=== PATIENT | female | born 1980 | race Caucasian/White ===

== ENCOUNTER 2025-04-04 16:47 | Emergency (ER) | payer BC, SELFPAY ==
[2025-04-04 17:18] VITALS: BP 145/92; PULSE 76; TEMP 37; O2SAT 100; BMI 29.5
[2025-04-04 18:12] LABS: Glucose Urine UA NEGATIVE (NEGATIVE)
[2025-04-04 18:15] LABS: HCG Qualitative Urine* NEGATIVE (NEGATIVE)
[2025-04-04 18:24] LABS: Cast Seen? NONE SEEN #/LPF (NONE SEEN); Crystals Seen? None Seen #/HPF (None Seen); Urine Culture Indicated NO
--- NOTE | 2025-04-04 19:01 | ED_ITS ---
HPI - Female Genitourinary General Chief complaint: Vaginal Bleeding Stated complaint: Vaginal Bleeding Time Seen by Provider: 04/04/25 17:13 Source: patient Mode of arrival: walk-in History of Present Illness HPI Narrative: Patient presents to the ED with vaginal bleeding. She reports that her menstrual cycle has lasted approximately 2 weeks. The flow had slowed down for a few days but she recently noticed spotting that has now increased to the point of requiring pads again. She describes mild cramping similar to her usual menstrual cramps. She denies heavy bleeding (not saturating pads rapidly), severe abdominal pain, dysuria, fever, or other systemic symptoms. She was recently tested for STDs due to resuming sexual activity with her ex-, and results were negative. No history of thyroid disease or hormone use. Related Data Home Medications ?Medication ?Instructions ?Recorded ?Confirmed No Known Home Medications 04/04/2503/15 Allergies Allergy/AdvReac Type Severity Reaction Status Date / Time No Known Drug Allergies Allergy Verified 04/04/25 17:18 PFSH PFSH Social History Little interest or pleasure in doing things: not at all Feeling down, depressed, or hopeless: not at all Exam Narrative Exam Narrative: * General: Alert, oriented, in no acute distress * Vital Signs: BP 145/92, afebrile, not tachycardic * Abdomen: Soft, nontender, no guarding or rebound * Pelvic Exam: * Vaginal bleeding noted * Cervical os closed * No external lesions or masses * No signs of infection (no purulent discharge, no cervical motion tenderness) Constitutional Vital Signs, click to edit/add: Last Vital Signs Temp 98.6 F 04/04/25 17:18 Pulse 76 04/04/25 17:18 Resp 16 04/04/25 17:18 BP 145/92 H 04/04/25 17:18 Pulse Ox 100 04/04/25 17:18 O2 Del Method Room Air 04/04/25 17:18 Course Vital Signs Vital signs: Vital Signs Temperature 98.6 F 04/04/25 17:18 Pulse Rate 76 04/04/25 17:18 Respiratory Rate 16 04/04/25 17:18 Blood Pressure 145/92 H 04/04/25 17:18 Pulse Oximetry 100 04/04/25 17:18 Oxygen Delivery Method Room Air 04/04/25 17:18 Temperature 98.6 F 04/04/25 17:18 Pulse Rate 76 04/04/25 17:18 Respiratory Rate 16 04/04/25 17:18 Blood Pressure 145/92 H 04/04/25 17:18 Pulse Oximetry 100 04/04/25 17:18 Oxygen Delivery Method Room Air 04/04/25 17:18 MDM - Female Genitourinary MDM Narrative Medical decision making narrative: MDM: Patient is hemodynamically stable and not experiencing severe bleeding. Pelvic exam reassuring with closed cervical os and no lesions. Recent STD testing negative. Most likely etiology is abnormal uterine bleeding/menorrhagia. Less likely causes include structural pathology (fibroids, polyps), hormonal imbalance, or infection. Ectopic ruled out clinically and by history. Discussed with the patient the importance of close follow-up with her PCP or bottom bleacher for further evaluation (e.g., labs, pelvic ultrasound if indicated). Provided strict return precautions including heavy bleeding (soaking >1 pad/hour), severe pain, syncope, or fever. Patient verbalized understanding and agrees with the plan. Differential Diagnosis: * Abnormal uterine bleeding (most likely) * Anovulatory cycle * Uterine fibroids or polyps (no history, no ab pain, discussed follow up) * Endometrial hyperplasia (less likely but needs follow-up) * Coagulopathy or medication effect (no new meds or history of coagulopathies) * Pelvic infection (less likely, no fever or discharge) * Early complication (unlikely ? not , cervical os closed) Medical Records Attestation: I reviewed the patient's medical records. Lab Data Labs: Lab Results 04/04/25 Range/Units 17:33 Urine Color Lt. yellow (YELLOW) Urine Clarity Clear (CLEAR) Urine pH 6.0 (5.0-9.0) Ur Specific [place] 1.020 (1.005-1.025) Urine Protein Negative (NEG/TRACE) mg/dL Urine Glucose (UA) Negative (NEGATIVE) mg/dL Urine Ketones Negative (NEGATIVE) mg/dL Urine Occult Blood Large A (NEGATIVE) Urine Nitrite Negative (NEGATIVE) Urine Bilirubin Negative (NEGATIVE) Urine Urobilinogen 0.2 (0.2-1.0) EU/dL Ur Leukocyte Esterase Trace A (NEGATIVE) Urine RBC 5-10 A (0-2) #/HPF Urine WBC 0-2 A (NONE SEEN) #/HPF Ur Squamous Epith Cells Many A (NONE/RARE) #/LPF Urine Crystals None seen (None Seen) #/HPF Urine Bacteria Trace A (NONE SEEN) #/HPF Urine Casts None seen (NONE SEEN) #/LPF Urine Mucus Trace A (NONE SEEN) Ur Culture Indicated? No Urine HCG, Qual Negative (NEGATIVE) Discharge Plan Discharge Chief Complaint: Vaginal Bleeding Clinical Impression: Menorrhagia Patient Disposition: Home, Self-Care Time of Disposition Decision: 19:09 Condition: Good Mode of Transportation: Private Vehicle Prescriptions / Home Meds: No Action No Known Home Medications Print Language: Japanese Instructions: Abnormal (Dysfunctional) Uterine Bleeding (ED), Menorrhagia (ED) Additional Instructions: After Visit Summary ? Vaginal Bleeding What We Found Today: * Your bleeding appears to be related to a prolonged menstrual cycle (abnormal uterine bleeding/menorrhagia). * Your exam was reassuring ? your cervix is closed, there were no signs of infection, and your vital signs are stable. * You are not , and your recent STD tests were negative. What To Do At Home: * Keep track of how many pads you use each day. * Rest, stay well-hydrated, and eat a balanced diet. * Take an bkpb-smy-lgondit pain reliever (ibuprofen or acetaminophen) if you have cramps, unless a doctor has told you not to take these medicines. When To Return To the ED: Come back right away if you: * Soak more than one pad per hour for more than 2 hours * Pass large clots or have sudden, heavy bleeding * Feel lightheaded, faint, weak, or dizzy * Have severe abdominal pain * Develop a fever or foul-smelling discharge Follow-Up: * Schedule a visit with your primary care doctor or bottom bleacher within the next few days for further evaluation. * They may order bloodwork or an ultrasound to look for possible causes of the prolonged bleeding. Referrals: DERIC CALL [Primary Care Provider, [facility]] - 1 week Discharge Date/Time: 04/04/25 19:15
== END 2025-04-04 19:15 | disposition home or self-care (01) ==
PROVIDERS: Emergency Provider Emergency Medicine; PCP Internal Medicine
DX: N92.0 Excessive and frequent menstruation with regular cycle (principal)
CPT/HCPCS: 81001; 84703; 99283; 99285